=== PATIENT | male | born 1995 | race Caucasian/White ===

== ENCOUNTER 2022-09-07 13:14 | Emergency (ER) | payer OTHER, SELFPAY ==
[2022-09-07 13:20] VITALS: BP 141/81; PULSE 87; RESP 15; TEMP 37.1; O2SAT 94; BMI 21.2
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
[2022-09-07 14:37] VITALS: BP 124/75; PULSE 85; RESP 14; O2SAT 96
== END 2022-09-07 14:34 | disposition home or self-care (01) ==
PROVIDERS: Emergency Provider Emergency Medicine
DX: T14.8XXA Other injury of unspecified body region, initial encounter (principal); W50.1XXA Accidental kick by another person, initial encounter; Y99.0 Civilian activity done for income or pay
CPT/HCPCS: 71046; 93005; 93010; 99283; 99284